=== PATIENT | male | born 1960 ===

== ENCOUNTER 2018-05-27 07:32 | Emergency (ER) | payer OTHER ==
[2018-05-27 07:43] VITALS: BP 105/70; PULSE 84; RESP 17; TEMP 97.8; O2SAT 99
--- NOTE | 2018-05-27 08:09 | ED PDOC ---
Arrival/HPI - General Chief Complaint: Cough, Cold, Congestion Time Seen by Provider: 05/27/18 07:42 Historian: Patient - History of Present Illness Narrative History of Present Illness (Text): 05/27/18 08:04 A 57 year old male presents to the emergency department complaining of sore throat and congestion for 3 days. Patient denies any fever, chills, or any other complaints at this time. Denies any sick contacts. Past Medical History - Provider Review Nursing Documentation Reviewed: Yes - Cardiac Hx Cardiac Disorders: No - Pulmonary Hx Respiratory Disorders: No - Neurological Hx Neurological Disorder: No - HEENT Hx HEENT Disorder: No - Endocrine/Metabolic Hx Endocrine Disorders: Yes (borderline DM) - Hematological/Oncological Hx Blood Disorders: No - Integumentary Hx Dermatological Disorder: No - Musculoskeletal/Rheumatological Hx Musculoskeletal Disorders: Yes Hx Herniated Disk: Yes - Gastrointestinal Hx Gastrointestinal Disorders: No - Genitourinary/Gynecological Hx Genitourinary Disorders: No - Psychiatric Hx Psychophysiologic Disorder: No Hx Substance Use: No - Surgical History Other/Comment: Left Kidney removed as child Family/Social History - Physician Review Nursing Documentation Reviewed: Yes Family/Social History: No Known Family HX Smoking Status: Current Some Days Smoker Hx Alcohol Use: No Hx Substance Use: No Allergies/Home Meds Allergies/Adverse Reactions: Allergies No Known Allergies Allergy (Verified 05/27/18 07:42) Home Medications: Home Meds Medication Instructions Recorded Confirmed Hydrocodone/Acetaminophen [[place] 1 each PO Q6 05/27/18 05/27/18 7.5-325 Tablet] Review of Systems - Physician Review All systems were reviewed & negative as marked: Yes - Review of Systems Constitutional: absent: Fevers, Night Sweats ENT: Sore Throat, Sinus Congestion Physical Exam Vital Signs Reviewed: Yes Vital Signs Temp Pulse Resp BP Pulse Ox 05/27/18 07:42 97.8 F 84 17 105/70 99 Temperature: Afebrile Blood Pressure: Normal Pulse: Regular Respiratory Rate: Normal Appearance: Positive for: Well-Appearing, Non-Toxic, Comfortable Pain Distress: None Mental Status: Positive for: Alert and Oriented X 3 - Systems Exam Head: Present: Atraumatic, Normocephalic, Tenderness (maxillary sinus) Pupils: Present: PERRL Extroacular Muscles: Present: EOMI Conjunctiva: Present: Normal Mouth: Present: Moist Mucous Membranes Pharnyx: Present: ERYTHEMA, EXUDATE Neck: Present: Normal Range of Motion Respiratory/Chest: Present: Clear to Auscultation, Good Air Exchange. No: Respiratory Distress, Accessory Muscle Use Cardiovascular: Present: Regular Rate and Rhythm, Normal S1, S2. No: Murmurs Abdomen: No: Tenderness, Distention, Peritoneal Signs Back: Present: Normal Inspection Upper Extremity: Present: Normal Inspection. No: Cyanosis, Edema Lower Extremity: Present: Normal Inspection. No: Edema Neurological: Present: GCS=15, CN II-XII Intact, Speech Normal Skin: Present: Warm, Dry, Normal Color. No: Rashes Psychiatric: Present: Alert, Oriented x 3, Normal Insight, Normal Concentration Medical Decision Making ED Course and Treatment: 05/27/18 08:11 Impression: 57 year old male with congestion and sore throat. Physical exam shows pharynx erythema with exudates. ttp to sinuss. suspect sinusitis Plan: -- Rapid Strep Test -- Rapid Flu Test -- Reassess and disposition Progress Notes: 05/27/18 10:13 lung cta, will tx for sinusitis. no body aches fever influenza swab neg. influenza less likely. vital stable pt feels comfortable going home. asking fo rdc. - Scribe Statement The provider has reviewed the documentation as recorded by the Reji Langford Provider Scribe Attestation: All medical record entries made by the Scribe were at my direction and personally dictated by me. I have reviewed the chart and agree that the record accurately reflects my personal performance of the history, physical exam, [facility] decision making, and the department course for this patient. I have also personally directed, reviewed, and agree with the discharge instructions and disposition. Disposition/Present on Arrival - Present on Arrival Any Indicators Present on Arrival: No History of DVT/PE: No History of Uncontrolled Diabetes: No Urinary Catheter: No History of Decub. Ulcer: No History Surgical Site Infection Following: None - Disposition Have Diagnosis and Disposition been Completed?: Yes Diagnosis: Pharyngitis Disposition: HOME/ ROUTINE Disposition Time: 07:40 Condition: STABLE Discharge Instructions (ExitCare): Sore Throat in Adults, Sinusitis, Adult (DC) Additional Instructions: follow up with your doctor/clinic. return to any er with worsening symptoms or concerns. Prescriptions: Amoxicillin/Clavulanate [Augmentin 875 MG-125 MG] 1 tab PO BID #20 tab Referrals: Holly Trivedi MD [Primary Care Provider] - Follow up with primary Forms: [employer] (Danish)
[2018-05-27 09:17] LABS: INFLUENZA A B NEGATIVE FOR FLU A/B (NEGATIVE)
[2018-05-27] MEDS ORDERED: Amoxicillin-Clav 875-125 mg Tab PO STA (09:29)
== END 2018-05-27 09:36 | disposition home or self-care (01) ==
LOC: ED 07:32 → MERGE 07:32 → ED 09:36
DX: J02.9 Acute pharyngitis, unspecified (principal)